=== PATIENT | female | born 1960 | race Caucasian/White ===

== ENCOUNTER 2020-10-14 14:01 | Emergency (ER) | payer BC ==
[~2020-10-14] VITALS: Ht 163.8 cm; Wt 71.0 kg
[2020-10-14] MEDS ORDERED: PLEASE ENTER HEIGHT AND WEIGHT MC SCH (15:00)
[2020-10-14] MEDS ORDERED: PROPARACAINE OPHTH 0.5%, 15ML RIGHTEYE ONE (15:00)
[2020-10-14] MEDS ORDERED: FLUORESCEIN OPHTHALMIC 1 MG STRIP RIGHTEYE ONE (15:00)
--- NOTE | 2020-10-14 15:45 | NUR ---
To room from lobby
[2020-10-14] MEDS ORDERED: PROPARACAINE OPHTH 0.5%, 15ML ONE (15:53)
[2020-10-14] MEDS ORDERED: FLUORESCEIN OPHTHALMIC 1 MG STRIP ONE (15:53)
--- NOTE | 2020-10-14 17:58 | NUR ---
dr ruiz spoke with dr drew odell
[2020-10-14] MEDS ORDERED: NEO/POLY B/DEXA 5 ML DROPS RIGHTEYE ONE (18:00)
[2020-10-14 18:47] VITALS: BP 116/79
--- NOTE | 2020-10-14 18:47 | NUR ---
FIRST CONTACT WITH PATIENT. PATIENT IN ROOM WITH WAITING ON MEDICATION TO ARRIVE FROM PHARMACY SO PATIENT CAN BE DISCHARGED. PATIENT HAS NO OTHER COMPLAINTS/ NEEDS AT THIS TIME. VSS. WILL CONTINUE TO MONITOR.
--- NOTE | 2020-10-14 18:49 | NUR ---
REPORT TO SARA ROBLES.
[2020-10-14] MEDS ORDERED: NEO/POLY/HC OPHTH SUSP 7.5ML RIGHTEYE ONE (19:00)
--- NOTE | 2020-10-14 19:09 | NUR ---
Patient given discharge instructions and they have confirmed that they understand the instructions. Patient ambulatory with steady gait. NAD, all questions answered appropriately, denies additional needs at this time. No personal belongings left in room after discharge.
== END 2020-10-14 19:12 | disposition home or self-care (01) ==
LOC: ED 15:58
DX: H10.231 Serous conjunctivitis, except viral, right eye (principal)
CPT/HCPCS: 99283